=== PATIENT | female | born 1975 | race Caucasian/White ===

== ENCOUNTER 2025-08-05 12:00 | Emergency (ER) | payer OTHER ==
[~2025-08-05] VITALS: Ht 157.5 cm; Wt 134.6 kg
[2025-08-05 14:29] LABS: BASO # 0.1 10^3/uL (0.0-0.2); BASO % 0.9 % (0.0-1.0); EOS # 0.2 10^3/uL (0.0-0.5); EOS % 3.7 % (0.0-3.0); LYMPH # 2.0 10^3/uL (1.5-5.0); LYMPH % 31.1 % (24.0-44.0); MONO # 0.3 10^3/uL (0.0-0.8); MONO % 5.0 % (2.0-8.0); NEUTROPHILS # 3.8 10^3/uL (1.5-8.5); NEUTROPHILS % 59.0 % (36.0-66.0); PLATELET COUNT, AUTOMATED 252 10^3/uL (150-450)
[2025-08-05 14:49] LABS: ALT/SGPT 39 U/L (7.0-40); AST/SGOT 20 U/L (<34); C REACTIVE PROTEIN QUANTITATIV < 0.50 MG/DL (<1.0); CALCIUM LEVEL 9.0 MG/DL (8.5-10.1); CARBON DIOXIDE LEVEL 30 MMOL/L (20-31); CHLORIDE LEVEL 104 MMOL/L (98-107); CREATININE FOR GFR 0.76 MG/DL (0.55-1.30); GLOMERULAR FILTRATION RATE > 90.0 (>58); POTASSIUM SERUM 4.2 MMOL/L (3.5-5.1); SODIUM LEVEL 141 MMOL/L (136-145)
[2025-08-05 15:00] LABS: HCG, SERUM QUALITATIVE NEGATIVE (NEGATIVE)
[2025-08-05 15:23] LABS: KETONE, URINE AUTO RFX NEGATIVE (NEGATIVE); LEUKOCYTE ESTERASE UR AUTO RFX NEGATIVE (NEGATIVE); NITRITE, URINE AUTO RFX NEGATIVE (NEGATIVE); RBC, URINE AUTO RFX 3 /HPF (0-3); SQUAM EPITHELIAL CELL UR AURFX 2 /HPF (0-6); WBC, URINE AUTO RFX 1 /HPF (0-3)
[2025-08-05] MEDS ORDERED: ISOVUE-370 76% 100 ML VIAL As Ordered ONE (16:38)
[2025-08-05] MEDS: KETOROLAC 30 MG/ML 1 ML VIAL IV ONE (17:18)
[2025-08-05 18:00] VITALS: BP 117/57
[2025-08-05 18:15] VITALS: TEMP 97; O2SAT 97
[2025-08-05] MEDS ORDERED: OMEP40CA4 PO (18:51)
[2025-08-05] MEDS ORDERED: SUCR1TA PO (18:51)
== END 2025-08-05 18:59 | disposition home or self-care (01) ==
LOC: M ED 12:00
DX: R10.9 Unspecified abdominal pain (principal); R94.31 Abnormal electrocardiogram [ECG] [EKG]; Z79.899 Other long term (current) drug therapy
CPT/HCPCS: 74177; 80053; 81001; 84703; 85025; 85652; 86140; 93005; 96374; 99284; J1885; Q9967